=== PATIENT | male | born 1975 | race Caucasian/White ===

== ENCOUNTER 2016-03-23 15:54 | Emergency (ER) | payer BC, MEDICAID ==
[2016-03-23 16:10] VITALS: BMI 22.4
[2016-03-23] MEDS ORDERED: ONDANSETRON HCL 4 MG ODT TAB PO ONE (16:10)
[2016-03-23] MEDS ORDERED: OXYCODONE HCL 5 MG TABLET PO ONE (16:10)
[2016-03-23] MEDS ORDERED: HYDROmorphone 1 MG INJECTION IM ONE (16:11)
[2016-03-23] MEDS ORDERED: PROMETHAZINE 25 MG/ML VIAL IM ONE (16:11)
--- NOTE | 2016-03-23 16:12 | EDPRACDOC ---
ED Hip Problem HPI - General Information Stated Complaint: LEFT HIP PAIN Time Seen by Provider: 03/23/16 16:08 Information Source: Patient Home Medications: Home Medications Amlodipine Bes/Olmesartan Med [Miguel Tablet (5mg/40 mg)] 1 tab PO DAILY 11/27/15 Ibuprofen [Motrin Ib] 600 - 800 mg PO Q12H PRN 11/27/15 Oxycodone HCl/Acetaminophen [Percocet 5-325 mg Tablet] 1 tab PO Q6H PRN #30 tab 11/27/15 Promethazine [Phenergan] 25 mg PO Q4-6H PRN #15 tab 11/27/15 Cyclobenzaprine HCl [Flexeril] 10 mg PO TID PRN #15 tablet 03/23/16 Oxycodone HCl/Acetaminophen [Percocet 5-325 mg Tablet] 1 tab PO Q6H PRN #20 tab 03/23/16 Allergies/Adverse Reactions: Allergies Allergy/AdvReac Type Severity Reaction Status Date / Time erythromycin base Allergy Nausea/Vomi Verified 03/23/16 16:28 ting - History of Present Illness 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 C/o L hip and thigh pain. Denies LOC, vision changes, n/v, neck or back pain, abd pain, loss of control bowel or bladder. Hx AVN of bilateral hips and is in process of medical clearance for hip replacements by Dr Miller. Hip Problem Location: Reports: Left Mechanism: Reports: Blunt Trauma Circumstances: Reports: Fall Relevant History: Reports: Arthritis, Other (AVN) Able to Bear Weight: No Pain Severity: Severe Associated Signs & Symptoms: Reports: Thigh Pain ED Past Medical History - History Reviewed Yes Nurses notes reviewed and agree except as marked - Patient Medical History Cardiac History: Reports: Hypertension Psychological History: Denies: Depression Surgical History: Reports: Tonsillectomy/Adnoidectomy - Social Medical History Smoking Status: Heavy tobacco smoker (5 or more cigarettes/day or daily pipe/ cigar) ETOH: None Substance Abuse: None EDM Review of Systems - Review of Systems Constitutional: No Symptoms Reported. negative: Fever, Chills, Weakness, Fatigue, Loss of Appetite Eyes: No Symptoms Reported. negative: Redness, Blurred Vision, Double Vision, Discharge, Pain, Light Sensitive, Photophobia Respiratory: No Symptoms Reported. negative: Cough, Brassy Cough, Barky Cough, Shortness of Breath, Wheezing, Hemoptysis Cardiovascular: No Symptoms Reported. negative: Chest Pain, Palpitations, Syncope, Edema, Orthopnea, PND, Skin Mottling, Cyanosis Gastrointestinal: No Symptoms Reported. negative: Pain, Constipation, Nausea, Vomiting, Diarrhea, Melena, Formula Intolerance Genitourinary: No Symptoms Reported. negative: Dysuria, Hematuria, Frequency, Discharge, Bleeding, Testicular Pain, Neurological: No Symptoms Reported. negative: Headache, Dizziness, Seizure, Numbness, Weakness, Speech Difficulty, Gait Difficulty Musculoskeletal: Femur, Hip Integumentary: No Symptoms Reported. negative: Itching, Rash, Bruising, Wound Allergic/Immunologic: No Symptoms Reported. negative: Hives, Itching Hematologic: No Symptoms Reported. negative: Lymphadenopathy, Easy Bruising, Easy Bleeding Psychiatric: No Symptoms Reported. negative: Anxiety, Depression, Hallucinations, Insomnia, Suicidal - Physical Exam Constitutional: Alert, Distress (mild) Oriented to: Time, Person, Place Last recorded Vital Signs: Last Vital Signs Temp Pulse 116 03/23/16 16:09 Resp 24 03/23/16 16:09 BP 125/83 03/23/16 16:09 Pulse Ox 100 03/23/16 16:09 Oxygen Pulse Oxygen Saturation 100 O2 Device Room Air Oxygen Flow Rate Fraction of Inspired Oxygen ( FIO2) - HEENT Head: Normal ( normocephalic) Eye Exam: Normal (PERRL, EOMI, Sclera white) Neck: Normal (FROM, trachea at midline) - Respiratory/Cardiovascular Respiratory: Normal - CTA (BBS clear to auscultation without adventitious sounds ) Cardiovascular: Normal (RRR without murmur, gallop or rub) - GI Auscultation: Normal (NABS) Palpation: Normal (Soft,No rebound or guarding, non distended) Tenderness: Non tender, Other (no luq or ruq tenderness) Vásquez's Sign: Negative - Musculoskeletal Back: Normal (Non-Tender) Extremities: Normal (Normal tone, Pulses 2+ No cyanosis or edema, FROM) - Integumentary Skin: Normal, Warm, Dry Lymphatics: Normal (no adenopathy) - Neurologic Memory Impaired: Normal Motor Function: Normal (Normal tone, Pulses 2+ No cyanosis or edema, FROM) Mood Description: Normal Perception: Normal ED Hip Problem Physical Exam - Musculoskeletal Hip: Limited ROM, Moderate tenderness Hip Deformity: Normal Pelvis: Normal Thigh: Moderate Tenderness Back: Normal Distal Function/Circulation: Normal - Differential Diagnosis Avascular necrosis, DJD arthritis, Contusion, Femur fracture, Hip fracture, Sprain - Re-evaluation Re-evaluation 1 Re-evaluation Time: 17:18 (improved but not gone) - Diagnostic Imaging Hip Image interpreted by: Radiologist IMPRESSION: 1. No evidence of acute osseous abnormality. 2. Avascular necrosis involving the right greater than left femoral heads. Femur Image interpreted by: Radiologist IMPRESSION: No acute fracture identified. Left femoral head avascular necrosis. 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
--- NOTE | 2016-03-23 17:04 | DIRPT ---
CLINICAL DATA: Fell going up steps. Left hip pain. Initial encounter. EXAM: LEFT HIP (WITH PELVIS) 2-3 VIEWS COMPARISON: Pelvis/right hip radiographs 11/27/2015. Right hip MRI 12/23/2015. FINDINGS: The left hip is located. No acute fracture is identified. Limited evaluation of the right hip again demonstrates patchy subchondral sclerosis and mild femoral head articular surface irregularity, overall stable to minimally more prominent than on the prior study. Less pronounced sclerotic changes are present in the left femoral head without evidence of articular surface collapse. IMPRESSION: 1. No evidence of acute osseous abnormality. 2. Avascular necrosis involving the right greater than left femoral heads. Electronically Signed By: Hakan Sierra M.D. On: 03/23/2016 16:59
--- NOTE | 2016-03-23 17:06 | DIRPT ---
CLINICAL DATA: Fell going up steps today. Left hip pain. Initial encounter. EXAM: LEFT FEMUR - 2 VIEW COMPARISON: Pelvic/right hip radiographs 11/27/2015 and MRI 12/23/2015 FINDINGS: The left femur appears intact without fracture identified. Increased density in the left femoral head is consistent with known avascular necrosis. No articular surface collapse is seen, more fully evaluated on concurrent dedicated hip radiographs. The knee is located. No soft tissue abnormality is seen. IMPRESSION: No acute fracture identified. Left femoral head avascular necrosis. Electronically Signed By: Hakan Sierra M.D. On: 03/23/2016 17:04
[2016-03-23 17:37] VITALS: BP 125/82; PULSE 90
== END 2016-03-23 17:40 | disposition home or self-care (01) ==
LOC: ED 15:54 → EDMC 17:40
DX: S73.102A Unspecified sprain of left hip, initial encounter (principal); M87.052 Idiopathic aseptic necrosis of left femur; W01.0XXA Fall on same level from slipping, tripping and stumbling without subsequent striking against object, initial encounter; Y93.9 Activity, unspecified
CPT/HCPCS: 73502; 73552; 96372; 99283; J1170; J2550